=== PATIENT | female | born 1950 | race Caucasian/White ===

== ENCOUNTER 2016-12-30 16:55 | Emergency (ER) | payer OTHER, MEDICARE ==
[~2016-12-30] VITALS: Ht 152.4 cm; Wt 45.4 kg
[~2016-12-30 16:55] MED LIST: ADOXA100 MG PO; ALBUTEROL0.09 MG/A1 INH; CALCIUM + D 6001 TAB PO; CLOPIDOGREL75 MG PO; HYDROXYCHLOROQ200 MG PO; OMEPRAZOLE40 MG PO; SERTRALINE HYDR50 MG PO; SINGULAIR10 MG PO; VICODIN 5-3001 EACH PO; VICODIN5-300 PO; ZOCOR20 MG PO
[2016-12-30 16:59] VITALS: BP 148/69
--- NOTE | 2016-12-30 17:48 | ED GENERAL ADULT ---
History of Present Illness General Chief Complaint: Animal/Insect Bite Stated Complaint: TICK BITE TO RIGHT LEG Source: patient, family, old records Exam Limitations: no limitations Vital Signs & Intake/Output Vital Signs & Intake/Output Vital Signs Date Time Temp Pulse Resp B/P B/P Pulse O2 O2 Flow FiO2 Mean Ox Delivery Rate 12/30 1659 98.2 63 18 148/69 100 Room Air Allergies Coded Allergies: Sulfa (Sulfonamide Antibiotics) (RASH 11/28/15) Reconcile Medications Albuterol Sulfate (Albuterol Sulfate Hfa) 0.09 MG/Actuation GUILLERMO 2 PUFF INH PRN ASTHMA (Reported) 90 MCG PER PUFF Calcium/Vitamin D (Calcium + D) (Unknown Strength) TAB (Unknown Dose) PO DAILY SUPPLEMENT (Reported) CLOPIDOGREL BISULFATE (Clopidogrel) 75 MG TAB 1 TAB PO DAILY BLOOD THINNER ( Reported) Doxycycline (Adoxa) 100 MG TAB 1 TAB PO BID TICK BITE HYDROCODONE/ACETAMINOPHEN (Hydrocodon-Acetaminophen 5-325) 1 TAB TAB 1 TAB PO Q6 PRN PAIN Hydrocodone/Acetaminophen (Vicodin 5-300 MG Tablet) 1 EACH TABLET 1 TAB PO Q6HR PRN PAIN Hydroxychloroquine Sulfate 200 MG TAB 1 TAB PO BID APS (Reported) Montelukast Sodium (Singulair) 10 MG TAB 1 TAB PO DAILY ALLERGIES (Reported) Omeprazole 40 MG ECC 1 CAP PO DAILY GI (Reported) SERTRALINE HCL (Sertraline Hydrochloride) 50 MG TAB 150 MG PO DAILY MENTAL HEALTH (Reported) Simvastatin (Zocor) 20 MG TAB 1 TAB PO DAILY CHOLESTEROL (Reported) Triage Note: 66 Y/O FEMALE C/O TICK BITE BEHIND R KNEE; NOTICED THIS AFTERNOON. STATES SHE TRIED TO REMOVE TICK BUT UNSURE IF SHE GOT IT ALL OUT. C/O REDNESS AROUND SITE. Triage Nurses Notes Reviewed? yes HPI: Patient noticed a tick on the back of her right thigh. Patient is unsure how long it had been on. Tick was not engorged. Patient pulled the tick but only the body came out. Patient denies any pain. Patient presents for removal. Past History Travel History Traveled to [place] past 21 day No Medical History Any Pertinent Medical History? 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 No Review of Systems Review of Systems Constitutional: Reports: no symptoms. Respiratory: Reports: no symptoms. Cardiovascular: Reports: no symptoms. Musculoskeletal: Reports: no symptoms. Neurological/Psychological: Reports: no symptoms. Immunologic/Allergic: Reports: no symptoms. Physical Exam Physical Exam General Appearance: well developed/nourished, alert, awake Eyes: Bilateral: PERRL, EOMI. Respiratory: normal breath sounds, chest non-tender, no respiratory distress, lungs clear Cardiovascular: regular rate/rhythm, normal peripheral pulses Neurologic/Psych: no motor/sensory deficits, awake, alert, oriented x 3, normal gait, normal mood/affect Skin: EMBEDDED TICK PARTS TO RIGHT POSTERIOR THIGH Core Measures ACS in differential dx? No CVA/TIA Diagnosis: No Severe Sepsis Present: No Septic Shock Present: No Progress Differential Diagnoses I considered the following diagnoses in my evaluation of the patient: [TICK] Plan of Care: Current Medications Sig/Karlee Start time Last Medication Dose Stop Time Status Admin Doxycycline Hyclate 200 MG ONCE ONE 12/30 1814 AC (Vibramycin) 12/31 1815 Initial ED EKG: none Comments: Area cleaned and prepped, 1 mL of 1% lidocaine infused. Tic entirely removed. Departure Departure Disposition: HOME OR SELF CARE Condition: Stable Clinical Impression Primary Impression: Tick bite Qualifiers: Encounter type: initial encounter Qualified Code: W57.XXXA - Bitten or stung by nonvenomous insect and other nonvenomous arthropods, initial encounter Referrals: ADRIANO CASTRO,JONATHON Baxter (PCP/Family) Additional Instructions: REUTRN FOR ANY CONCERNS Departure Forms: Customer Survey General Discharge Information Critical Care Note Critical Care Note Critical Care Time: non-applicable
== END 2016-12-30 18:29 ==
LOC: ERH 16:55
DX: S70.361A Insect bite (nonvenomous), right thigh, initial encounter (principal); W57.XXXA Bitten or stung by nonvenomous insect and other nonvenomous arthropods, initial encounter